=== PATIENT | female | born 1975 | race Caucasian/White ===

== ENCOUNTER → 2023-08-21 17:37 | Outpatient (REF) | payer OTHER, SELFPAY | LOC: HWWDC 17:37 | PROVIDERS: ATTENDING PHYSICIAN Physician Assistant Medical | DX: Z12.31 Encounter for screening mammogram for malignant neoplasm of breast (principal) | CPT/HCPCS: 77063; 77067 ==

== ENCOUNTER → 2024-08-22 16:06 | Outpatient (REF) | payer BC, SELFPAY | LOC: HWWDC 16:06 | PROVIDERS: ATTENDING PHYSICIAN Physician Assistant Medical | DX: Z12.31 Encounter for screening mammogram for malignant neoplasm of breast (principal) | CPT/HCPCS: 77063; 77067 ==